=== PATIENT | female | born 1945 | race Caucasian/White ===

== ENCOUNTER 2017-08-03 18:32 | Observation (INO) | payer OTHER ==
[2017-08-03] MEDS ORDERED: NS 500 ML IV ONE (19:20)
--- NOTE | 2017-08-03 19:24 | EDPHY ---
H & P Time Seen by Provider: 08/03/17 19:11 HPI/ROS: CHIEF COMPLAINT: Bloating, abdominal pain HISTORY OF PRESENT ILLNESS: Patient is a 72-year-old female with a history of colon cancer and colon resection who presents to the emergency department with abdominal pain. Patient states her pain started last evening at around 9:00 p.m. After going to dinner to friend's house. She felt as though she had significant gas. This caused her to have some discomfort. Today she had increasing low abdominal pain. She states her pain is primarily right lower quadrant and suprapubic. She went to urgent care was sent to the emergency department for further evaluation. She has had nausea vomiting at 4:00 p.m.. She has mild nausea now. No diarrhea. No fevers or chills. REVIEW OF SYSTEMS: My complete review of systems is negative except as mentioned in the HPI. Past Medical/Surgical History: Includes colon cancer, ectopic Past surgical history: Colon resection, salpingectomy Social history: The patient does not smoke. Smoking Status: Never smoked Physical Exam: 129/92, 120, 15, 98% on room GENERAL: Well-appearing, in no acute distress, alert. HEENT: Eyes normal to inspection, normal pharynx, no signs of dehydration. NECK: No thyromegaly, no lymphadenopathy, supple. RESPIRATORY: Clear to auscultation bilaterally, no rales, rhonchi or wheezing. CVS: Regular rate and rhythm, no rubs, murmurs, or gallops. ABDOMEN: Soft, mild right lower quadrant tenderness to palpation with no rebound or guarding, nondistended, no organomegaly. BACK: Normal to inspection, no CVA tenderness. SKIN: Normal color, no rash, warm, dry. No pallor. EXTREMITIES: No pedal edema, no calf tenderness, no Homans sign or cords, no joint swelling. NEURO/PSYCH: Alert and oriented, normal mood and affect, normal motor sensory exam. Constitutional: Initial Vital Signs Temperature (C) 36.3 C 08/03/17 18:38 Heart Rate 120 H 08/03/17 18:38 Respiratory Rate 15 08/03/17 18:38 Blood Pressure 129/92 H 08/03/17 18:38 O2 Sat (%) 98 08/03/17 18:38 O2 Delivery Mode Room Air Allergies/Adverse Reactions: No Known Allergies Allergy (Verified 09/13/15 10:37) Home Medications: Medication Instructions Recorded Ascorbic Acid [Vitamin C 500 mg 500 - 1,000 mg PO DAILY 09/13/15 (*)] Magnesium Oxide [Magnesium Oxide 400 mg PO DAILY 09/13/15 400 mg (*)] Multivitamins [Multivitamin (*)] 1 each PO DAILY 09/13/15 Docusate Sodium [Colace 100 MG (*)] 100 mg PO BID #30 cap 09/24/15 Hydrocodone/APAP 5/325 [[place] 1 - 2 tab PO Q4 PRN #30 tab 09/24/15 5/325 (*)] Ibuprofen [Motrin (*)] 600 mg PO QID #30 tab 09/24/15 Cephalexin [Keflex (*)] 500 mg PO QID #12 cap 08/03/17 Medical Decision Making ED Course/Re-evaluation: In the emergency department I discussed possible etiologies with the patient. I answered all her questions. IV was placed. Laboratory studies were ordered. CT of the abdomen pelvis with IV contrast was ordered. I reviewed the patient's laboratory studies. CBC and chemistry were unremarkable. Patient's urine was positive for leuk esterase and 15-25 white cells. Because of this the patient was given Rocephin 1 g IV. I am awaiting CT results. I did write a prescription for Keflex if the patient is discharged. On recheck the patient was stable. No new complaints. Still with mild lower abdominal discomfort. 2030: CT of the abdomen pelvis: Please refer the dictated report by Dr. Yi. Patient has a early small-bowel obstruction. Transition point is at the padded flexure at her anastomosis site. I discussed the results with the patient. I answered all her questions. I discussed case Dr. Valerio. She will admit the patient for further care. I did not place an NG tube at this time because patient is not vomiting. She does not have significant distension. Differential Diagnosis: My differential includes but is not limited to appendicitis, mass, malignancy, obstruction, intussusception, volvulus, perforation - Data Points Laboratory Results: Laboratory Results 08/03/17 19:25 08/03/17 19:25 08/03/17 08/03/17 08/03/17 19:25 19:25 19:11 WBC 8.43 10^3/uL 10^3/uL (3.80-9.50) RBC 5.60 10^6/uL H 10^6/uL (4.18-5.33) Hgb 17.0 g/dL H g/dL (12.6-16.3) Hct 48.5 % H % (38.0-47.0) MCV 86.6 fL fL (81.5-99.8) MCH 30.4 pg pg (27.9-34.1) MCHC 35.1 g/dL g/dL (32.4-36.7) RDW 13.7 % % (11.5-15.2) Plt Count 262 10^3/uL 10^3/uL (150-400) MPV 9.7 fL fL (8.7-11.7) Neut % (Auto) 86.4 % H % (39.3-74.2) Lymph % (Auto) 9.4 % L % (15.0-45.0) [place] % (Auto) 3.8 % L % (4.5-13.0) Eos % (Auto) 0.0 % L % (0.6-7.6) Baso % (Auto) 0.2 % L % (0.3-1.7) Nucleat RBC Rel Count 0.0 % % (0.0-0.2) Absolute Neuts (auto) 7.28 10^3/uL H 10^3/uL (1.70-6.50) Absolute Lymphs (auto) 0.79 10^3/uL L 10^3/uL (1.00-3.00) Absolute Monos (auto) 0.32 10^3/uL 10^3/uL (0.30-0.80) Absolute Eos (auto) 0.00 10^3/uL L 10^3/uL (0.03-0.40) Absolute Basos (auto) 0.02 10^3/uL 10^3/uL (0.02-0.10) Absolute Nucleated RBC 0.00 10^3/uL 10^3/uL (0-0.01) Immature Gran % 0.2 % % (0.0-1.1) Immature Gran # 0.02 10^3/uL 10^3/uL (0.00-0.10) Sodium 140 mEq/L mEq/L (135-145) Potassium 4.4 mEq/L mEq/L (3.5-5.2) Chloride 106 mEq/L mEq/L (97-110) Carbon Dioxide 23 mEq/l mEq/l (22-31) Anion Gap 11 mEq/L mEq/L (8-16) BUN 22 mg/dL mg/dL (7-23) Creatinine 0.9 mg/dL mg/dL (0.6-1.0) Estimated GFR > 60 Glucose 132 mg/dL H mg/dL (70-100) Calcium 9.8 mg/dL mg/dL (8.5-10.4) Total Bilirubin 0.9 mg/dL mg/dL (0.1-1.4) Conjugated Bilirubin 0.3 mg/dL mg/dL (0.0-0.5) Unconjugated Bilirubin 0.6 mg/dL mg/dL (0.0-1.1) AST 30 IU/L IU/L (14-46) ALT 19 IU/L IU/L (9-52) Alkaline Phosphatase 72 IU/L IU/L (38-126) Total Protein 7.3 g/dL g/dL (6.3-8.2) Albumin 4.5 g/dL g/dL (3.5-5.0) Lipase 100 IU/L IU/L (23-300) Urine Color YELLOW Urine Appearance HAZY Urine pH 5.0 (5.0-7.5) Ur Specific [place] 1.025 (1.002-1.030) Urine Protein 1+ H (NEGATIVE) Urine Ketones 1+ H (NEGATIVE) Urine Blood NEGATIVE (NEGATIVE) Urine Nitrate NEGATIVE (NEGATIVE) Urine Bilirubin NEGATIVE (NEGATIVE) Urine Urobilinogen 2.0 EU H EU (0.2-1.0) Ur Leukocyte Esterase 2+ H (NEGATIVE) Urine RBC 1-3 /hpf /hpf (0-3) Urine WBC 15-25 /hpf H /hpf (0-3) Ur Epithelial Cells TRACE /lpf /lpf (NONE-1+) Hyaline Casts >182 /lpf H /lpf (0-1) Urine Mucus 4+ /lpf H /lpf (NONE-1+) Urine Glucose NEGATIVE (NEGATIVE) Medications Given: Discontinued Medications Sodium Chloride (Ns) 500 mls @ 0 mls/hr IV EDNOW ONE; Wide Open PRN Reason: Protocol Stop: 08/03/17 19:21 Last Admin: 08/03/17 19:31 Dose: 500 mls Ceftriaxone Sodium/Dextrose (Rocephin 1 Gm (Premix)) 50 mls @ 100 mls/hr IV EDNOW ONE PRN Reason: Protocol Stop: 08/03/17 20:27 Last Admin: 08/03/17 20:03 Dose: 50 mls Departure - Departure Disposition: [facility] Inpatient Acute Clinical Impression: Small bowel obstruction Abdominal pain Qualifiers: Abdominal location: right lower quadrant Qualified Code(s): R10.31 - Right lower quadrant pain Condition: Good
[2017-08-03 19:39] LABS: PLATELET COUNT 262 10^3/uL (150-400)
[2017-08-03] MEDS ORDERED: IOPAMIDOL (ISOVUE-300) 100 ML BTL ONE (19:51)
[2017-08-03] MEDS ORDERED: PROMETHAZINE HCL 25 MG/ML INJ IVP PRN (22:55)
[2017-08-03] MEDS ORDERED: HYDROmorphone HCL/NS 0.5 MG/ML SYR IVP PRN (22:55)
[2017-08-03] MEDS ORDERED: ONDANSETRON DISINTEGRATING 4 MG TAB PO PRN (22:55)
[2017-08-03] MEDS ORDERED: ONDANSETRON 4 MG/2 ML VIAL IVP PRN (22:55)
--- NOTE | 2017-08-03 22:59 | PDGENHP ---
History and Physical - Chief Complaint abdominal pain, bloating, vomiting - History of Present Illness 72 yo female with h/o colon cancer s/p resection presents to ED with abdominal pain, bloating, and vomiting. Her symptoms started today after eating nachos. She developed crampy pain with marked bloating. She felt that gas needed to come out, but wasn't coming out either end. Last BM was last night and was normal. She began to have nausea and vomited this afternoon. No hematemesis or coffee ground emesis. She sometimes gets this bloating, crampy feeling, but it usually resolves. This time, it got worse and she presented to the ED. No fevers/chills. No dysuria, frequency, or urgency. No CP or SOB. In the ED, abdominal CT revealed a moderate partial small bowel obstruction at her prior anastamosis site. She is admitted to the hospital for further management. History Information - Allergies/Home Medication List Allergies/Adverse Reactions: No Known Allergies Allergy (Verified 09/13/15 10:37) Home Medications: NK [No Known Home Meds] 08/03/17 [Last Taken Unknown] I have personally reviewed and updated: family history, medical history, social history, surgical history - Past Medical History Additional medical history: Colon cancer s/p resection. Ectopic s/p salpingectomy - Family History Positive for: non-pertinent - Social History Smoking Status: Never smoked Alcohol Use: None Drug Use: None Additional social history: Lives independently Review of Systems Review of Systems: ROS: 10pt was reviewed & negative except for what was stated in HPI & below Physical Exam Physical Exam: Temp Pulse Resp BP Pulse Ox 36.8 C 95 16 136/82 H 94 08/03/17 21:52 08/03/17 21:52 08/03/17 21:52 08/03/17 21:52 08/03/17 21:52 Constitutional: no apparent distress Eyes: PERRL Ears, Nose, Mouth, Throat: moist mucous membranes Cardiovascular: regular rate and rhythym Respiratory: no respiratory distress, clear to auscultation Gastrointestinal: other (soft, mild distention, non-tender, no r/r/g, absent bowel tones) Skin: warm Musculoskeletal: full muscle strength Neurologic: AAOx3 Psychiatric: interacting appropriately Lab Data & Imaging Review 08/03/17 19:25 08/03/17 19:25 WBC 8.43 10^3/uL (3.80-9.50) 08/03/17 19: RBC 5.60 10^6/uL (4.18-5.33) H 08/03/17 19:25 Hgb 17.0 g/dL (12.6-16.3) H 08/03/17 19:25 Hct 48.5 % (38.0-47.0) H 08/03/17 19:25 MCV 86.6 fL (81.5-99.8) 08/03/17 19: MCH 30.4 pg (27.9-34.1) 08/03/17: MCHC 35.1 g/dL (32.4-36.7) 08/03/17: RDW 13.7 % (11.5-15.2) 08/03/17: Plt Count 262 10^3/uL (150-400) 08/03/17: MPV 9.7 fL (8.7-11.7) 08/03/17 19: Neut % (Auto) 86.4 % (39.3-74.2) H 08/03/17 19: Lymph % (Auto) 9.4 % (15.0-45.0) L 08/03/17: [place] % (Auto) 3.8 % (4.5-13.0) L 08/03/17 19: Eos % (Auto) 0.0 % (0.6-7.6) L 08/03/17 19: Baso % (Auto) 0.2 % (0.3-1.7) L 08/03/17 19: Nucleat RBC Rel Count 0.0 % (0.0-0.2) 08/03/17: Absolute Neuts (auto) 7.28 10^3/uL (1.70-6.50) H 08/03/17 19: Absolute Lymphs (auto) 0.79 10^3/uL (1.00-3.00) L 08/03/17 19: Absolute Monos (auto) 0.32 10^3/uL (0.30-0.80) 08/03/17 19:25 Absolute Eos (auto) 0.00 10^3/uL (0.03-0.40) L 08/03/17 19:25 Absolute Basos (auto) 0.02 10^3/uL (0.02-0.10) 08/03/17 19:25 Absolute Nucleated RBC 0.00 10^3/uL (0-0.01) 08/03/17 19:25 Immature Gran % 0.2 % (0.0-1.1) 08/03/17 19:25 Immature Gran # 0.02 10^3/uL (0.00-0.10) 08/03/17 19:25 Sodium 140 mEq/L (135-145) 08/03/17 19:25 Potassium 4.4 mEq/L (3.5-5.2) 08/03/17 19:25 Chloride 106 mEq/L (97-110) 08/03/17 19:25 Carbon Dioxide 23 mEq/l (22-31) 08/03/17 19:25 Anion Gap 11 mEq/L (8-16) 08/03/17 19:25 BUN 22 mg/dL (7-23) 08/03/17 19:25 Creatinine 0.9 mg/dL (0.6-1.0) 08/03/17 19:25 Estimated GFR > 60 08/03/17 19:25 Glucose 132 mg/dL (70-100) H 08/03/17 19:25 Calcium 9.8 mg/dL (8.5-10.4) 08/03/17 19:25 Total Bilirubin 0.9 mg/dL (0.1-1.4) 08/03/17 19:25 Conjugated Bilirubin 0.3 mg/dL (0.0-0.5) 08/03/17 19:25 Unconjugated Bilirubin 0.6 mg/dL (0.0-1.1) 08/03/17 19:25 AST 30 IU/L (14-46) 08/03/17 19:25 ALT 19 IU/L (9-52) 08/03/17 19:25 Alkaline Phosphatase 72 IU/L (38-126) 08/03/17 19:25 Total Protein 7.3 g/dL (6.3-8.2) 08/03/17 19:25 Albumin 4.5 g/dL (3.5-5.0) 08/03/17 19:25 Lipase 100 IU/L (23-300) 08/03/17 19:25 Urine Color YELLOW 08/03/17 19:11 Urine Appearance HAZY 08/03/17 19:11 Urine pH 5.0 (5.0-7.5) 08/03/17 19:11 Ur Specific [place] 1.025 (1.002-1.030) 08/03/17 19:11 Urine Protein 1+ (NEGATIVE) H 08/03/17 19:11 Urine Ketones 1+ (NEGATIVE) H 08/03/17 19:11 Urine Blood NEGATIVE (NEGATIVE) 08/03/17 19:11 Urine Nitrate NEGATIVE (NEGATIVE) 08/03/17 19:11 Urine Bilirubin NEGATIVE (NEGATIVE) 08/03/17 19:11 Urine Urobilinogen 2.0 EU (0.2-1.0) H 08/03/17 19:11 Ur Leukocyte Esterase 2+ (NEGATIVE) H 08/03/17 19:11 Urine RBC 1-3 /hpf (0-3) 08/03/17 19:11 Urine WBC 15-25 /hpf (0-3) H 08/03/17 19:11 Ur Epithelial Cells TRACE /lpf (NONE-1+) 08/03/17 19:11 Hyaline Casts >182 /lpf (0-1) H 08/03/17 19:11 Urine Mucus 4+ /lpf (NONE-1+) H 08/03/17 19:11 Urine Glucose NEGATIVE (NEGATIVE) 08/03/17 19:11 Assessment & Plan Assessment: Partial SBO - at prior anastomosis site. Seems to be clinically resolving since arrival. No more vomiting and less bloating. Currently pain free. -admit to obs for conservative management -NPO for bowel rest, IVF's -defer NG tube at this time, though would place if vomiting recurs or has increased distention or pain -surgery consult in am if not improving H/O colon cancer s/p resection Possible UTI - symptoms and imaging more c/w SBO as above. No fevers and nl wbc 's. Received IV Ceftriaxone in ED. -defer further atbx for now -UCx sent, follow Full code DVT PPLX - Lovenox Dispo - obs
[2017-08-03] MEDS ORDERED: D5W NS 1,000 ML IV SCH (23:00)
[2017-08-04 05:13] LABS: PLATELET COUNT 220 10^3/uL (150-400)
[2017-08-04] MEDS: ENOXAPARIN 40 MG/0.4 ML SYR SC SCH ×2 (09:18→09:19)
--- NOTE | 2017-08-04 15:06 | ASMTCMCOM ---
CM Note CM Note Notes: Patient admitted for abdominal pain with a history of colon cancer. She was found to have a partial SBO. She is being managed conservatively and has recently been able to take PO. She will likely discharge independently with no needs, but Case Management is available if that changes. Date Signed: 08/04/2017 03:06 PM Electronically Signed By:Marleni Jose RN
[2017-08-04 15:38] VITALS: BP 163/86
== END 2017-08-04 16:25 | disposition home or self-care (01) ==
LOC: F3N 22:19
PROVIDERS: ADMIT Hospitalist; ATTEND Hospitalist
DX: K56.600 Partial intestinal obstruction, unspecified as to cause (principal); E86.9 Volume depletion, unspecified; Z85.038 Personal history of other malignant neoplasm of large intestine; Z98.0 Intestinal bypass and anastomosis status; Z90.49 Acquired absence of other specified parts of digestive tract
CPT/HCPCS: 74177; G0378; J0696; J1650; Q9967; 96365

== ENCOUNTER → 2017-08-03 | Outpatient (CLI) | payer OTHER | LOC: BMCIMAGING 16:51 | PROVIDERS: ATTEND Family Medicine | DX: K63.9 Disease of intestine, unspecified (principal); Z85.038 Personal history of other malignant neoplasm of large intestine ==

== ENCOUNTER → 2018-01-26 | Outpatient (CLI) | payer OTHER | LOC: FCPNEURO 23:51 | PROVIDERS: ATTEND Internal Medicine Sleep Medicine | DX: G47.33 Obstructive sleep apnea (adult) (pediatric) (principal); G47.61 Periodic limb movement disorder ==

== ENCOUNTER 2018-06-03 13:17 | Observation (INO) | payer OTHER ==
--- NOTE | 2018-06-03 13:43 | EDPHY ---
H & P Stated Complaint: abd pain distress nausea /vomiting hx colon cancer - Personal History Current Tetanus Diphtheria and Acellular Pertussis (TDAP): Unsure - Medical/Surgical History Hx Asthma: No Hx Chronic Respiratory Disease: No Hx Diabetes: No Hx Cardiac Disease: No Hx Renal Disease: No Hx Cirrhosis: No Hx Alcoholism: No Hx HIV/AIDS: No Hx Splenectomy or Spleen Trauma: No Other PMH: FINGER FX 2016 colon CA bowel resection/appy SBO - Social History Smoking Status: Never smoked Time Seen by Provider: 06/03/18 13:43 Constitutional: Initial Vital Signs Temperature (C) 36.4 C 06/03/18 13:22 Heart Rate 144 H 06/03/18 13:22 Respiratory Rate 19 06/03/18 13:22 Blood Pressure 121/92 H 06/03/18 13:22 O2 Sat (%) 94 06/03/18 13:22 O2 Delivery Mode Room Air Allergies/Adverse Reactions: No Known Allergies Allergy (Verified 06/03/18 13:21) Home Medications: Medication Instructions Recorded Ondansetron Odt [Zofran Odt 4 mg 4 mg PO Q4HRS PRN #20 tab 08/04/17 (*)] Medical Decision Making - Diagnostics Imaging Results: Imaging Impressions Abdomen CT 06/03/18 13:56 Impression: 1. Small bowel obstruction with transition point at the anastomosis in the right upper quadrant, similar in location to the prior obstruction in July 2017. Might consider scoping after acute symptoms resolve to ensure there is no mass. 2. Associated mesenteric edema and inflammation. 3. Other stable findings, including uterine fibroids, small hiatal hernia, and hepatic cyst. Findings and recommendations discussed with Dr. Esetves at 1528 hour, 06/03/2018. ED Course/Re-evaluation: CHIEF COMPLAINT: "Really bad gastro pain" HISTORY OF PRESENT ILLNESS: The patient is a 72 y/o female with a history of colon cancer s/p right hemicolectomy and prior SBOs who arrives complaining of diffuse abdominal pain onset this morning. Symptoms feel similar but more severe than her prior partial SBO one year ago, which resolved spontaneously. She has been unable to eat today due to pain and has vomited. She did have two bowel movements earlier today, but has not passed any gas recently. No fever, dyspnea, urinary symptoms, recent illness, recent trauma. REVIEW OF SYSTEMS: A comprehensive 10 system review of systems is otherwise negative aside from elements mentioned in the history of present illness and medical decision making. PHYSICAL EXAM: HR, BP, O2 Sat, RR. Temp noted General Appearance: Alert, well hydrated, appropriate, and non-toxic appearing. Head: Atraumatic without scalp tenderness or obvious injury Eyes: Pupils equal, round, reactive to light and accommodation, EOMI, no trauma , no injection. Nose: Atraumatic, no rhinorrhea, clear. Throat: Mucus membranes moist. Neck: Supple, nontender, no lymphadenopathy. Respiratory: No retractions, no distress, no wheezes, and no accessory muscle use. Lungs are clear to auscultation bilaterally. Cardiovascular: Regular rate and rhythm, no murmurs, rubs, or gallops. Good capillary refill all extremities. Gastrointestinal: Abdomen is distended, diffusely tender. Musculoskeletal: Normal active ROM of all extremities, atraumatic. Neurological: Alert, appropriate, and interactive. The patient has non-focal cranial nerves, motor, sensory, and cerebellar exam. Skin: No rashes, good turgor, no nodules on palpation. Past medical history: Colon cancer treated surgically only, SBO Past surgical history: Right hemicolectomy September 2015, salpingectomy for ectopic Family history: Noncontributory Social history: Lives in [place]. Retired. Single. Prior medical records reviewed including admission 08/03/17 for partial SBO. DIAGNOSTICS/PROCEDURES/CRITICAL CARE TIME: Abdominal CT: pending at shift change DIFFERENTIAL DIAGNOSIS: The differential diagnosis for the patient's abdominal pain included but was not limited to ovarian cyst, pelvic inflammatory disease, ovarian torsion, urinary tract infection, ectopic , cholecystitis, and appendicitis. MEDICAL DECISION MAKING: This is a 72 y/o female with a history of colon cancer s/p colectomy in 2016 and prior SBO in 2018 who presents with diffuse abdominal pain, vomiting, and inability to eat. She has abdominal distension with diffuse tenderness on exam suspicious for recurrent bowel obstruction. Plan for abdominal CT and symptomatic treatment. 4mg IV Zofran, 30mg IV Toradol, 1L IV NS ordered. Patient care signed out to Dr. Esteves at shift change pending imaging results. ( Samuel Fonseca) 3:00 p.m.-I assumed care of this patient at shift change. Awaiting CT scan to rule out small-bowel obstruction. Patient has a history of partial colon resection for colon cancer and prior small-bowel obstruction. In review of the chart, initial heart rate 144. Will recheck vital signs. 3:25 p.m.-CT scan of the abdomen pelvis read by Dr. Tolentino reveals a small bowel obstruction. Results discussed with the patient. She is currently feeling better after IV Toradol and Zofran. No vomiting today. Will hold in NGT for now. The hospitalist service was consulted for admission. (Akila Esteves) Differential Diagnosis: Differential diagnosis includes though it is not limited to appendicitis, cholecystitis, diverticulitis, pyelonephritis, bowel perforation, small bowel obstruction. (Akila Estevse) - Data Points Laboratory Results: Laboratory Results 06/03/18 14:05 06/03/18 14:05 06/03/18 06/03/18 06/03/18 14:10 14:05 14:05 WBC 9.49 10^3/uL 10^3/uL (3.80-9.50) RBC 5.57 10^6/uL H 10^6/uL (4.18-5.33) Hgb 16.9 g/dL H g/dL (12.6-16.3) POC Hgb 17.7 gm/dL H gm/dL (12.6-16.3) Hct 50.2 % H % (38.0-47.0) POC Hct 52 % H % (38-47) MCV 90.1 fL fL (81.5-99.8) MCH 30.3 pg pg (27.9-34.1) MCHC 33.7 g/dL g/dL (32.4-36.7) RDW 13.9 % % (11.5-15.2) Plt Count 273 10^3/uL 10^3/uL (150-400) MPV 9.7 fL fL (8.7-11.7) Neut % (Auto) 91.5 % H % (39.3-74.2) Lymph % (Auto) 5.6 % L % (15.0-45.0) [place] % (Auto) 2.4 % L % (4.5-13.0) Eos % (Auto) 0.0 % L % (0.6-7.6) Baso % (Auto) 0.2 % L % (0.3-1.7) Nucleat RBC Rel Count 0.0 % % (0.0-0.2) Absolute Neuts (auto) 8.68 10^3/uL H 10^3/uL (1.70-6.50) Absolute Lymphs (auto) 0.53 10^3/uL L 10^3/uL (1.00-3.00) Absolute Monos (auto) 0.23 10^3/uL L 10^3/uL (0.30-0.80) Absolute Eos (auto) 0.00 10^3/uL L 10^3/uL (0.03-0.40) Absolute Basos (auto) 0.02 10^3/uL 10^3/uL (0.02-0.10) Absolute Nucleated RBC 0.00 10^3/uL 10^3/uL (0-0.01) Immature Gran % 0.3 % % (0.0-1.1) Immature Gran # 0.03 10^3/uL 10^3/uL (0.00-0.10) RBC/WBC/PLT Morphology TNP Platelet Estimate TNP POC Sodium 141 mEq/L mEq/L (135-145) Sodium 137 mEq/L mEq/L (135-145) POC Potassium 4.2 mEq/L mEq/L (3.3-5.0) Potassium 4.4 mEq/L mEq/L (3.5-5.2) POC Chloride 103 mEq/L mEq/L (97-110) Chloride 100 mEq/L mEq/L (97-110) Carbon Dioxide 27 mEq/l mEq/l (22-31) POC Total CO2 27 mEq/L mEq/L (22-31) Anion Gap 10 mEq/L mEq/L (6-14) POC BUN 22 mg/dL mg/dL (7-23) BUN 22 mg/dL mg/dL (7-23) Creatinine 0.8 mg/dL mg/dL (0.6-1.0) POC Creatinine 0.8 mg/dL mg/dL (0.6-1.0) Estimated GFR > 60 Glucose 136 mg/dL H mg/dL (70-100) POC Glucose 147 mg/dL H mg/dL (70-100) Calcium 9.7 mg/dL mg/dL (8.5-10.4) Total Bilirubin 0.6 mg/dL mg/dL (0.1-1.4) Conjugated Bilirubin 0.2 mg/dL mg/dL (0.0-0.5) Unconjugated Bilirubin 0.4 mg/dL mg/dL (0.0-1.1) AST 32 IU/L IU/L (14-46) ALT 16 IU/L IU/L (9-52) Alkaline Phosphatase 84 IU/L IU/L (38-126) Total Protein 7.3 g/dL g/dL (6.3-8.2) Albumin 4.5 g/dL g/dL (3.5-5.0) Lipase 73 IU/L IU/L (23-300) Medications Given: Discontinued Medications Sodium Chloride (Ns) 1,000 mls @ 0 mls/hr IV EDNOW ONE; Wide Open PRN Reason: Protocol Stop: 06/03/18 13:57 Last Admin: 06/03/18 14:08 Dose: 1,000 mls Ketorolac Tromethamine (Toradol) 30 mg IVP EDNOW ONE Stop: 06/03/18 13:57 Last Admin: 06/03/18 14:10 Dose: 30 mg Ondansetron HCl (Zofran) 4 mg IVP EDNOW ONE Stop: 06/03/18 13:57 Last Admin: 06/03/18 14:08 Dose: 4 mg Point of Care Test Results: Chemistry 06/03/18 14:10 POC Sodium 141 mEq/L mEq/L (135-145) POC Potassium 4.2 mEq/L mEq/L (3.3-5.0) POC Chloride 103 mEq/L mEq/L (97-110) POC Total CO2 27 mEq/L mEq/L (22-31) POC BUN 22 mg/dL mg/dL (7-23) POC Creatinine 0.8 mg/dL mg/dL (0.6-1.0) POC Glucose 147 mg/dL H mg/dL (70-100) ISTAT H&H 06/03/18 14:10 POC Hgb 17.7 gm/dL H gm/dL (12.6-16.3) POC Hct 52 % H % (38-47) Departure - Departure Disposition: [facility]patient Acute Clinical Impression: Small bowel obstruction Condition: Fair Referrals: Kamilah Recinos MD [Primary Care Provider] - As per Instructions Report Scribed for: Samuel Fonseca Report Scribed by: Peri Rivera Date of Report: 06/03/18 Time of Report: 13:53
[2018-06-03] MEDS ORDERED: NS 1,000 ML IV ONE (13:56)
[2018-06-03] MEDS ORDERED: KETOROLAC 30 MG/1 ML SDV IVP ONE (13:56)
[2018-06-03] MEDS ORDERED: ONDANSETRON 4 MG/2 ML VIAL IVP ONE (13:56)
[2018-06-03] MEDS ORDERED: IOPAMIDOL (ISOVUE-300) 100 ML BTL ONE (14:22)
[2018-06-03 14:35] LABS: PLATELET COUNT 273 10^3/uL (150-400)
[2018-06-03] MEDS ORDERED: ONDANSETRON DISINTEGRATING 4 MG TAB PO PRN (15:48)
[2018-06-03] MEDS ORDERED: ACETAMINOPHEN 325 MG TAB PO PRN (15:48)
[2018-06-03] MEDS ORDERED: ONDANSETRON 4 MG/2 ML VIAL IVP PRN (15:48)
--- NOTE | 2018-06-03 15:56 | PDGENHP ---
History and Physical - Chief Complaint Abdominal pain - History of Present Illness Very pleasant 72-year-old female with past medical history of colon cancer status post small-bowel resection, multiple small-bowel obstructions, who presents with acute abdominal pain starting at 3:00 a.m. This morning. She said she woke up with a crampy mid epigastric abdominal pain that worsened throughout the morning. The pain seemed to come and go in waves. She had 2 normal bowel movements this morning that were nonbloody and not black. She has not been able to eat or drink anything has a seems to make the pain much worse. She has not had any nausea or vomiting however. The pain was similar to previous episodes of small-bowel obstructions and so she decided to come to the emergency room. She has had no fevers chills nausea vomiting chest pain, cough or other symptoms History Information - Allergies/Home Medication List Allergies/Adverse Reactions: No Known Allergies Allergy (Verified 06/03/18 13:21) I have personally reviewed and updated: family history, medical history, social history, surgical history - Past Medical History Additional medical history: Colon cancer s/p resection. Ectopic s/p salpingectomy - Surgical History Additional surgical history: Colon resection - Family History Positive for: non-pertinent - Social History Smoking Status: Never smoked Additional social history: Lives independently Review of Systems Review of Systems: ROS: 10pt was reviewed & negative except for what was stated in HPI & below Physical Exam Physical Exam: Temp Pulse Resp BP Pulse Ox 36.4 C 111 H 16 129/85 H 95 06/03/18 13:22 06/03/18 15:33 06/03/18 15:33 06/03/18 15:33 06/03/18 15:33 Constitutional: no apparent distress, appears nourished, not in pain Eyes: PERRL, anicteric sclera, EOMI Ears, Nose, Mouth, Throat: moist mucous membranes, hearing normal, ears appear normal, no oral mucosal ulcers Cardiovascular: regular rate and rhythym, no murmur, rub, or gallop, No edema Respiratory: no respiratory distress, no rales or rhonchi, clear to auscultation Gastrointestinal: other (Absent bowel sounds tender to palpation diffusely in epigastrium) Genitourinary: no bladder fullness, no bladder tenderness Skin: warm, normal color, no rashes or abrasions, no fluctuance, no induration, No mottled Musculoskeletal: full muscle strength, no muscle tenderness, normal joint ROM, no joint effusions Psychiatric: interacting appropriately, not anxious, not encephalopathic, thought process linear Lymph, Heme, Immunologic: no cervical LAD, no supraclavicular LAD Lab Data & Imaging Review 06/03/18 14:05 06/03/18 14:05 WBC 9.49 10^3/uL (3.80-9.50) 06/03/18 14:05 RBC 5.57 10^6/uL (4.18-5.33) H 06/03/18 14:05 Hgb 16.9 g/dL (12.6-16.3) H 06/03/18 14:05 POC Hgb 17.7 gm/dL (12.6-16.3) H 06/03/18 14:10 Hct 50.2 % (38.0-47.0) H 06/03/18 14:05 POC Hct 52 % (38-47) H 06/03/18 14:10 MCV 90.1 fL (81.5-99.8) 06/03/18 14:05 MCH 30.3 pg (27.9-34.1) 06/03/18 14:05 MCHC 33.7 g/dL (32.4-36.7) 06/03/18 14:05 RDW 13.9 % (11.5-15.2) 06/03/18 14:05 Plt Count 273 10^3/uL (150-400) 06/03/18 14:05 MPV 9.7 fL (8.7-11.7) 06/03/18 14:05 Neut % (Auto) 91.5 % (39.3-74.2) H 06/03/18 14:05 Lymph % (Auto) 5.6 % (15.0-45.0) L 06/03/18 14:05 Wirt % (Auto) 2.4 % (4.5-13.0) L 06/03/18 14:05 Eos % (Auto) 0.0 % (0.6-7.6) L 06/03/18 14:05 Baso % (Auto) 0.2 % (0.3-1.7) L 06/03/18 14:05 Nucleat RBC Rel Count 0.0 % (0.0-0.2) 06/03/18 14:05 Absolute Neuts (auto) 8.68 10^3/uL (1.70-6.50) H 06/03/18 14:05 Absolute Lymphs (auto) 0.53 10^3/uL (1.00-3.00) L 06/03/18 14:05 Absolute Monos (auto) 0.23 10^3/uL (0.30-0.80) L 06/03/18 14:05 Absolute Eos (auto) 0.00 10^3/uL (0.03-0.40) L 06/03/18 14:05 Absolute Basos (auto) 0.02 10^3/uL (0.02-0.10) 06/03/18 14:05 Absolute Nucleated RBC 0.00 10^3/uL (0-0.01) 06/03/18 14:05 Immature Gran % 0.3 % (0.0-1.1) 06/03/18 14:05 Immature Gran # 0.03 10^3/uL (0.00-0.10) 06/03/18 14:05 RBC/WBC/PLT Morphology TNP 06/03/18 14:05 Platelet Estimate TNP 06/03/18 14:05 POC Sodium 141 mEq/L (135-145) 06/03/18 14:10 Sodium 137 mEq/L (135-145) 06/03/18 14:05 POC Potassium 4.2 mEq/L (3.3-5.0) 06/03/18 14:10 Potassium 4.4 mEq/L (3.5-5.2) 06/03/18 14:05 POC Chloride 103 mEq/L (97-110) 06/03/18 14:10 Chloride 100 mEq/L (97-110) 06/03/18 14:05 Carbon Dioxide 27 mEq/l (22-31) 06/03/18 14:05 POC Total CO2 27 mEq/L (22-31) 06/03/18 14:10 Anion Gap 10 mEq/L (6-14) 06/03/18 14:05 POC BUN 22 mg/dL (7-23) 06/03/18 14:10 BUN 22 mg/dL (7-23) 06/03/18 14:05 Creatinine 0.8 mg/dL (0.6-1.0) 06/03/18 14:05 POC Creatinine 0.8 mg/dL (0.6-1.0) 06/03/18 14:10 Estimated GFR > 60 06/03/18 14:05 Glucose 136 mg/dL (70-100) H 06/03/18 14:05 POC Glucose 147 mg/dL (70-100) H 06/03/18 14:10 Calcium 9.7 mg/dL (8.5-10.4) 06/03/18 14:05 Total Bilirubin 0.6 mg/dL (0.1-1.4) 06/03/18 14:05 Conjugated Bilirubin 0.2 mg/dL (0.0-0.5) 06/03/18 14:05 Unconjugated Bilirubin 0.4 mg/dL (0.0-1.1) 06/03/18 14:05 AST 32 IU/L (14-46) 06/03/18 14:05 ALT 16 IU/L (9-52) 06/03/18 14:05 Alkaline Phosphatase 84 IU/L (38-126) 06/03/18 14:05 Total Protein 7.3 g/dL (6.3-8.2) 06/03/18 14:05 Albumin 4.5 g/dL (3.5-5.0) 06/03/18 14:05 Lipase 73 IU/L (23-300) 06/03/18 14:05 Assessment & Plan Assessment: 72-year-old female with past medical history of colon cancer status post resection and previous admissions for small-bowel obstruction presents with abdominal pain and CT showing another small-bowel obstruction. Small bowel obstruction (Acute)- I reviewed the CT which does show a small bowel obstruction with transition point at the anastomosis in her right upper quadrant, similar in location to her previous small bowel obstruction. Vitals are normal exam is reassuring and labs are unremarkable. I discussed the case with the emergency room physician and they decided not to place an NG tube case she has not vomited vomiting. -NPO with sips -IV hydration -medical management for now -if develops nausea vomiting or worsens place NG -if she fails to progress consult surgery Polycythemia- patient looks dehydrated likely hemoconcentration. Will give IV fluids and recheck labs in the morning. Prophylaxis- SCDs and Lovenox Fluids-IV saline Nutrition-NPO with sips Electrolytes-within normal limits Cor-full code Dispo-observation for small-bowel obstruction
[2018-06-03] MEDS: NS 1,000 ML IV SCH (18:16)
--- NOTE | 2018-06-03 22:41 | CPEKG ---
Test Reason : OPEN Blood Pressure : / mmHG Vent. Rate : 105 BPM Atrial Rate : 104 BPM P-R Int : 168 ms QRS Dur : 150 ms QT Int : 400 ms P-R-T Axes : 029 -49 128 degrees QTc Int : 529 ms Sinus tachycardia Left bundle branch block Confirmed by Akila Valencia ([id number]) on 06/03/2018 10:40:29 PM Referred By: AKILA VALENCIA Confirmed By:Akila Valencia
[2018-06-04 05:07] LABS: PLATELET COUNT 249 10^3/uL (150-400)
[2018-06-04] MEDS: NS 1,000 ML IV SCH (07:17)
[2018-06-04] MEDS ORDERED: ENOXAPARIN 40 MG/0.4 ML SYR SC SCH (09:00)
[2018-06-04 11:25] VITALS: BP 173/72
--- NOTE | 2018-06-04 19:16 | PDDCSUM ---
Discharge Summary Discharge Summary: This is a 72 yo female admitted with SBO, abd distention, and abd pain. She had bowel rest overnight. She was evaluated twice on the day of discharge. In the morning, her abd exam was consistent with no further abd distention and she was has having flatus and no abd pain. She was started on a clear liquid diet for lunch which she tolerated well. She was reevaluated in the afternoon after lunch and reported continued improvement with no abd pain or distention as well as ongoing flatus. She was offered to stay overnight given the morning KUB as well as her history of repeated SBO. However, as she is much improved and her exam is essentially unremarkable, she asked to be discharge. As she is much improved, she is being discharged with a plan for a clear liquid diet today and likely transition to soft tomorrow at home. She was given return precautions. She is able to drink fluids and is maintaining adequate hydration DDX: #SBO #Polycythemia, resolved #Hx of Colon cancer, s/p bowel resection several year ago Exam: NAD AAOX3 RRR CTA B S/NT/ND, + BS NO LE EDEMA MEDS: SEE MED REC TOTAL TIME SPENT ON D/C IS 35 MINS
== END 2018-06-04 14:39 | disposition home or self-care (01) ==
LOC: INTOOBSV 15:34 → F3E 16:15
PROVIDERS: ADMIT Internal Medicine; ATTEND Family Medicine
DX: K56.600 Partial intestinal obstruction, unspecified as to cause (principal); D75.1 Secondary polycythemia; E86.0 Dehydration; Z85.038 Personal history of other malignant neoplasm of large intestine; Z90.49 Acquired absence of other specified parts of digestive tract
CPT/HCPCS: 74019; 74177; 93005; 96361; 96372; 96374; 96375; 99285; G0378; J1650; J1885; J2405; Q9967; 82435-PO; 82565-PO; 82947-PO; 84132-PO; 84295-PO; 84520-PO; 85014-ER

== ENCOUNTER → 2018-08-27 | Outpatient (CLI) | payer OTHER | LOC: FIMAGING 08-22 10:07 | PROVIDERS: ATTEND Internal Medicine | DX: N28.1 Cyst of kidney, acquired (principal); I10 Essential (primary) hypertension; N28.89 Other specified disorders of kidney and ureter ==